=== PATIENT | female | born 1980 | race African-American/Black ===

== ENCOUNTER 2016-12-12 13:47 | Emergency (ER) | payer SELFPAY ==
[~2016-12-12] VITALS: Ht 170.2 cm; Wt 149.7 kg
[~2016-12-12 13:47] MED LIST: NAPR500T PO
[2016-12-12 15:15] LABS: BILIRUBIN,URINE NEGATIVE (NEG); GLUCOSE,URINE NEGATIVE (NEG); NITRITE,URINE NEGATIVE (NEG); PROTEIN,URINE NEGATIVE (NEG-TRACE); UROBILINOGEN,URINE 0.2 mg/dL (0.2 mg/dL)
[2016-12-12 15:18] LABS: BASO % 1 % (0-3); EOS % 1 % (0-3); HEMATOCRIT 35.4 % (36.0-47.0); LYMPH # 1.5 x10^3/uL (1.0-4.8); LYMPH % 23 % (24-48); MEAN CORPUSCULAR HEMOGLOBIN 28 pg (25-35); MEAN CORPUSCULAR HGB CONC 31 g/dL (31-37); MEAN CORPUSCULAR VOLUME 90 fL (79-100); MONO % 6 % (0-9); NEUT % 70 % (31-73); PLATELET COUNT 157 x10^3/uL (140-400); RED BLOOD COUNT 3.96 x10^6/uL (3.50-5.40); RED CELL DISTRIBUTION WIDTH 16.4 % (11.5-14.5); WHITE BLOOD COUNT 6.4 x10^3/uL (4.0-11.0)
--- NOTE | 2016-12-12 15:19 | PHYS DOC ---
Past Medical History Past Medical History: No Pertinent History Past Surgical History: Tubal ligation Additional Past Surgical Histo: ear surgery Alcohol Use: None Drug Use: None Adult General Chief Complaint Chief Complaint: ABDOMINAL PAIN HPI HPI 36-year-old female presenting to the emergency department today with epigastric abdominal pain this started 3-4 hours ago. Her pain is a cramping sensation in the epigastrium that radiates around to the back. The pain is moderate, intermittent, and without alleviating factors. She reports taking aspirin earlier today for headache. No exacerbating factors present. Review of systems is negative for nausea vomiting diaphoresis. She has had intermittent chest pain in addition to the epigastric abdominal pain. Negative for shortness of breath. She denies unilateral leg swelling hemoptysis. All other review of systems is negative unless otherwise noted in history of present illness. Review of Systems Review of Systems SEE ABOVE. Current Medications Current Medications Current Medications Medications (Trade) Dose Ordered Sig/Yudy Start Time Stop Time Status Last Admin Dose Admin Famotidine (Pepcid) 20 mg 1X ONCE 12/12/16 15:30 12/12/16 15:31 DC 12/12/16 15:19 20 MG Allergies Allergies Allergies Coded Allergies Type Severity Reaction Last Updated Verified No Known Drug Allergies 01/05/14 No Physical Exam Physical Exam Constitutional: Well developed, well nourished, no acute distress, non-toxic appearance. HENT: Normocephalic, atraumatic, bilateral external ears normal, oropharynx moist, no oral exudates, nose normal. [] Eyes: PERRLA, EOMI, conjunctiva normal, no discharge. [] Neck: Normal range of motion, no tenderness, supple, no stridor. Cardiovascular:Heart rate regular rhythm, no murmur [] Lungs & Thorax: Bilateral breath sounds clear to auscultation Abdomen: Soft nontender abdomen without rebound tenderness or guarding present. Negative McBurneys point. Negative Justin sign. No ecchymosis present. Skin: Warm, dry, no erythema, no rash. [] Back: No tenderness, no CVA tenderness. Extremities: No tenderness, no cyanosis, no clubbing, ROM intact, no edema. Neurologic: Alert and oriented X 3, normal motor function, normal sensory function, no focal deficits noted. [] Psychologic: Affect normal, judgement normal, mood normal. [] Current Patient Data Vital Signs Vital Signs Date Time Temp Pulse Resp B/P Pulse Ox O2 Delivery O2 Flow Rate FiO2 12/12/16 17:00 62 108/57 95 Room Air 12/12/16 14:10 99.0 16 99.0 Lab Values Laboratory Tests Test 12/12/16 14:30 12/12/16 14:35 12/12/16 17:15 Urine Collection Type Unknown Urine Color Yellow Urine Clarity Clear Urine pH 6.0 Urine Specific [place] 1.025 Urine Protein Negativemg/dL (NEG-TRACE) Urine Glucose (UA) Negativemg/dL (NEG) Urine Ketones (Stick) Negativemg/dL (NEG) Urine Blood Negative (NEG) Urine Nitrite Negative (NEG) Urine Bilirubin Negative (NEG) Urine Urobilinogen Dipstick 0.2mg/dL (0.2 mg/dL) Urine Leukocyte Esterase Small (NEG) Urine RBC 1-2/HPF (0-2) Urine WBC 1-4/HPF (0-4) Urine Squamous Epithelial Cells Mod/LPF Urine Bacteria Few/HPF (0-FEW) Urine Mucus Mod/LPF White Blood Count 6.4x10^3/uL (4.0-11.0) Red Blood Count 3.96x10^6/uL (3.50-5.40) Hemoglobin 11.0g/dL (12.0-15.5) L Hematocrit 35.4% (36.0-47.0) L Mean Corpuscular Volume 90fL (79-100) Mean Corpuscular Hemoglobin 28pg (25-35) Mean Corpuscular Hemoglobin Concent 31g/dL (31-37) Red Cell Distribution Width 16.4% (11.5-14.5) H Platelet Count 157x10^3/uL (140-400) Neutrophils (%) (Auto) 70% (31-73) Lymphocytes (%) (Auto) 23% (24-48) L Monocytes (%) (Auto) 6% (0-9) Eosinophils (%) (Auto) 1% (0-3) Basophils (%) (Auto) 1% (0-3) Neutrophils # (Auto) 4.4x10^3uL (1.8-7.7) Lymphocytes # (Auto) 1.5x10^3/uL (1.0-4.8) Monocytes # (Auto) 0.4x10^3/uL (0.0-1.1) Eosinophils # (Auto) 0.1x10^3/uL (0.0-0.7) Basophils # (Auto) 0.0x10^3/uL (0.0-0.2) Sodium Level 141mmol/L (136-145) Potassium Level 3.5mmol/L (3.5-5.1) Chloride Level 105mmol/L (98-107) Carbon Dioxide Level 26mmol/L (21-32) Anion Gap 10 (6-14) Blood Urea Nitrogen 9mg/dL (7-20) Creatinine 1.0mg/dL (0.6-1.0) Estimated GFR (Cockcroft-Gault) 76.8 BUN/Creatinine Ratio 9 (6-20) Glucose Level 94mg/dL (70-99) Calcium Level 8.7mg/dL (8.5-10.1) Total Bilirubin 0.5mg/dL (0.2-1.0) Aspartate Amino Transferase (AST) 31U/L (15-37) Alanine Aminotransferase (ALT) 24U/L (14-59) Alkaline Phosphatase 50U/L (46-116) Troponin I Quantitative < 0.017ng/mL (0.000-0.055) < 0.017ng/mL (0.000-0.055) Total Protein 7.5g/dL (6.4-8.2) Albumin 3.2g/dL (3.4-5.0) L Albumin/Globulin Ratio 0.7 (1.0-1.7) L Lipase 87U/L (73-393) Laboratory Tests 12/12/16 14:35 Laboratory Tests 12/12/16 14:35 EKG EKG EKG shows sinus rhythm with a regular rate. [place] is mildly leftward. Intervals normal. ST segments congruent. Not consistent with ACS. [] Radiology/Procedures Radiology/Procedures [] Course & Med Decision Making Course & Med Decision Making Pertinent Labs and Imaging studies reviewed. (See chart for details) [] 36-year-old female presenting to the emergency department 2 chief complaints. Epigastric abdominal pain and chest pain. Vital signs afebrile. Normal heart rate. Unremarkable. Pertinent physical exam shows a nontender abdomen. Nontender gallbladder. Lungs are clear to auscultation bilaterally. Blood work obtained. EKG obtained. Patient given Pepcid for epigastric abdominal pain. Patient received 325 mg of aspirin prior to arrival. Ultrasound of the right upper quadrant ordered and unremarkable. On reexamination the patient was feeling better. Her pain and improved to minimal. Troponin negative 2. EKG unremarkable. The patient was subsequent discharged home to follow up with her primary care physician over the next 2-3 days for continued outpatient evaluation workup and care. Patient demonstrates verbal understanding and face- to-face discharge instructions and return precautions given. Patient comfortable with plan. Dragon Disclaimer Dragon Disclaimer This electronic medical record was generated, in whole or in part, using a voice recognition dictation system. Departure Departure Impression: Primary Impression: Epigastric abdominal pain Additional Impression: Chest pain Disposition: HOME, SELF-CARE Condition: STABLE Referrals: NO PCP (PCP) ANA SPARKS MD Patient Instructions: Abdominal Pain (Nonspecific) Additional Instructions: Thank you for allowing us to participate in your care today. Followup with your primary care physician in 3 days if your symptoms do not improve. If you do not have a primary care provider you can ask for a list of our primary care providers. Return to the emergency department you have any new or concerning findings. This should be evaluated by the primary care physician and any necessary consulting services for continued management within a few days after discharge. Return to emergency room if you have any new or concerning symptoms including but not limited to fever, chills, nausea, vomiting, intractable pain, any new rashes, chest pain, shortness of air, uncontrolled bleeding, difficulty breathing, and/or vision loss. Scripts Famotidine (Pepcid)40 Mg [id number] Mg PO HS #14 TAB Prov:MELA RUBALCAVA MD 12/12/16 Problem Qualifiers Additional Impression: Chest pain Chest pain type: unspecified Qualified Code: R07.9 - Chest pain, unspecified MELA RUBALCAVA MD Dec 12, 2016 15:19
--- NOTE | 2016-12-12 15:28 | EKG ---
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
[2016-12-12] MEDS ORDERED: FAMOTIDINE 20 MG TABLET. PO ONE (15:30)
[2016-12-12 15:45] LABS: CALCIUM 8.7 mg/dL (8.5-10.1); GFR 76.8; POTASSIUM 3.5 mmol/L (3.5-5.1)
--- NOTE | 2016-12-12 15:45 | RAD ---
Right upper quadrant abdominal ultrasound History: Epigastric pain. Comparison: None. Technique: Transabdominal ultrasound images are obtained. Findings: Visualized pancreas is unremarkable. Liver is normal in echogenicity. No focal hepatic masses are identified. Right hepatic lobe is enlarged measuring 19.0 cm in length. Gallbladder has an unremarkable appearance. Common bile duct measures normally at 4 mm in diameter. The right kidney measures 12.3 cm in length and is without evidence of obstruction or stone. Visualized portions of the IVC have normal caliber. Impression: 1. Mild hepatomegaly. 2. Otherwise, unremarkable right upper quadrant ultrasound.
[2016-12-12 15:50] LABS: ALBUMIN 3.2 g/dL (3.4-5.0); ALBUMIN/GLOBULIN RATIO 0.7 (1.0-1.7); TOTAL BILIRUBIN 0.5 mg/dL (0.2-1.0); TOTAL PROTEIN 7.5 g/dL (6.4-8.2)
[2016-12-12 16:05] LABS: BACTERIA,URINE FEW /HPF (0-FEW); SQUAMOUS EPITHELIAL CELL,UR MOD /LPF
[2016-12-12] MEDS ORDERED: FAMO40TA57 PO (18:07)
[2016-12-12 18:14] LABS: NEG OBC UR NEG; POS OBC UR POS
[2016-12-12 18:34] VITALS: BP 134/82
--- NOTE | 2016-12-13 10:39 | RAD ---
Exam: PA and lateral chest radiograph History: Chest pain. Comparison: None. Findings: Cardiomediastinal silhouette is within normal limits for size. Bilateral lung evans are free of focal infiltrate. No pleural effusion is seen. On the frontal view, there appears to be increased lucency of the left apex relative to the contralateral side. Consequently, there might be a small left apical pneumothorax. Impression: Question small left apical pneumothorax. This could be confirmed with frontal chest inspiratory and expiratory radiographs. Results were discussed with emergency department staff on the morning of 12/13/2016.
--- NOTE | 2016-12-14 16:25 | VNOTE ---
CALL BACK NOTE CALL BACK Microbiology 12/12/16 Urine Culture - Final, Complete 12/12/16 Urine Culture Result 1 (OVIDIO) - Final, Complete Attempted to contact this patient in regard to urine culture positive for group B strep the number is not in service. A certified letter will be sent to the patient in regards to culture positive. RAY REAVES APRN Dec 14, 2016 16:24
== END 2016-12-12 18:38 | disposition home or self-care (01) ==
LOC: ER 13:47
DX: R10.13 Epigastric pain (principal); R07.9 Chest pain, unspecified; R51 Headache; Z98.51 Tubal ligation status
CPT/HCPCS: 36415; 71020; 76705; 80053; 81001; 81025; 83690; 84484; 85027; 87086; 93005; 99285-25

== ENCOUNTER 2018-06-04 09:29 | Emergency (ER) | payer OTHER ==
[~2018-06-04] VITALS: Ht 167.6 cm; Wt 145.1 kg
[~2018-06-04 09:29] MED LIST changes: +FAMO40TA57 PO; +NAPR-683 PO; -NAPR500T PO
[2018-06-04 09:40] VITALS: BP 163/81
[2018-06-04] MEDS ORDERED: DIPHTH,PERTUSS(ACELL),TET TOX 0.5 ML DISP.SYRIN. VAX IM ONE (10:30)
[2018-06-04] MEDS ORDERED: LIDOCAINE 1%/EPI 1:100,000 20 ML VIAL. INJ ONE (10:30)
--- NOTE | 2018-06-04 10:51 | RAD ---
History: Lacerations after cleaning above glass from broken window. Comparison: None. Findings: PA, lateral, and oblique views of the right hand. No acute fracture or dislocation is identified. No radiopaque soft tissue foreign body is appreciated. Impression: No acute radiographic abnormality is identified. Electronically signed by: Андрей Zepeda MD (06/04/2018 10:48 AM) [facility]
--- NOTE | 2018-06-04 12:15 | PHYS DOC ---
Past Medical History Past Medical History: No Pertinent History Past Surgical History: Tubal ligation Additional Past Surgical Histo: ear surgery Alcohol Use: None Drug Use: None Adult General Chief Complaint Chief Complaint: LACERATION/AVULSION HPI HPI Patient is a 38 year old female who presents with right hand laceration, patient states she cut herself accidentally picking up broken glasses from a window that broke. Review of Systems Review of Systems Constitutional: Denies fever or chills [] Musculoskeletal: Denies back pain or joint pain [] Integument: Reports right hand laceration Neurologic: Denies headache, focal weakness or sensory changes [] All other systems were reviewed and found to be within normal limits, except as documented in this note. Current Medications Current Medications Current Medications Medications (Trade) Dose Ordered Sig/Yudy Start Time Stop Time Status Last Admin Dose Admin Diphtheria/ Tetanus/Acell Pertussis (Boostrix) 0.5 ml ONCE ONCE 06/04/18 10:30 06/04/18 10:31 DC 06/04/18 10:35 0.5 ML Lidocaine/ Epinephrine (LIDOCAINE 1%-EPI 1:100,000 Multi-Dose) 20 ml 1X ONCE 06/04/18 10:30 06/04/18 10:31 DC 06/04/18 10:34 20 ML Allergies Allergies Allergies Coded Allergies Type Severity Reaction Last Updated Verified No Known Drug Allergies 01/05/14 No Physical Exam Physical Exam Constitutional: Well developed, well nourished, no acute distress, non-toxic appearance. [] Skin: Warm, dry, right index finger with a superficial laceration approximately 1 cm long mid phalanx lateral aspect. Full range of motion to the right index finger. Right ventral ring finger with another laceration approximately 4 cm long in a sharp. Laceration is on the ventral aspect of the finger proximal end. There is no obvious tendon involvement. Patient able to flex and extend the right fingers with no difficulties. +2 right radial pulse. Adequate radial, ulnar, and media sensation to the right hand and fingers. Cap refill less than 2 seconds the right hand. Back: No tenderness, no CVA tenderness. [] Extremities: No tenderness, no cyanosis, no clubbing, ROM intact, no edema. [] Neurologic: Alert and oriented X 3, normal motor function, normal sensory function, no focal deficits noted. [] Psychologic: Affect normal, judgement normal, mood normal. [] Current Patient Data Vital Signs Vital Signs Date Time Temp Pulse Resp B/P (MAP) Pulse Ox O2 Delivery O2 Flow Rate FiO2 06/04/18 09:40 98.5 82 18 163/81 (108) 99 Room Air 98.5 EKG EKG [] Radiology/Procedures Radiology/Procedures Laceration/Wound Repair Wound Location: Right ring finger laceration Wound's Depth, Shape: L Wound Length (cm): Approximately 4 cm Wound Explored: clean Irrigated w/ Saline (ccs): 30 Betadine Prep?: Yes Anesthesia: 1% of lidocaine with epinephrine Volume Anesthetic (ccs): 3 mL Wound Repaired With: Ethilon Suture Size/Type: 5.0/8 interrupted sutures, wound was covered with nonstick dressing []PROCEDURE: HAND RIGHT 3V History: Lacerations after cleaning above glass from broken window. Comparison: None. Findings: PA, lateral, and oblique views of the right hand. No acute fracture or dislocation is identified. No radiopaque soft tissue foreign body is appreciated. Impression: No acute radiographic abnormality is identified. Electronically signed by: Андрей Zepeda MD (06/04/2018 10:48 AM) [facility] DICTATED and SIGNED BY: АНДРЕЙ ZEPEDA MD DATE: 06/04/18 1047 Course & Med Decision Making Course & Med Decision Making Pertinent Labs and Imaging studies reviewed. (See chart for details) This is a 38-year-old female patient presenting to the ED with 2 lacerations one superficial laceration on the right index finger that does not need stitches , another laceration on the right ring finger. The laceration on the right ring finger was closed by me as noted in procedures. Tetanus was updated. Wound care instructions and return precautions provided. Discharged in stable condition. Staff Physician Addendum: I was working in the ER during the course of this patient's visit. I was available for consultation as needed, but I was not directly involved in the care of this patient. Dragon Disclaimer Dragon Disclaimer This electronic medical record was generated, in whole or in part, using a voice recognition dictation system. Departure Departure Impression: Primary Impression: Laceration of finger Disposition: 01 HOME, SELF-CARE Condition: STABLE Referrals: NO PCP (PCP) Follow-up with the emergency room with your own doctor in 7-10 days for suture removal Patient Instructions: Laceration Care, Adult Additional Instructions: You've right finger laceration that was closed with stitches. You can shower. Keep the area clean and dry. Please apply Neosporin to the area twice a day. Monitor it for any signs of infection including but not limited to increased redness, warmth to the area, yellow/odor drainage from the area and return to the ED if they occur. Follow-up with your own doctor or the emergency room in 7 -10 days for suture removal. Problem Qualifiers Primary Impression: Laceration of finger Encounter type: subsequent encounter Finger: ring finger Damage to nail status: without damage Foreign body presence: without foreign body Laterality: right Qualified Codes: S61.214D - Laceration without foreign body of right ring finger without damage to nail, subsequent encounter TAPAN DIETRICH APRN Jun 04, 2018 12:15 CHANI OROZCO MD Jun 04, 2018 17:54
== END 2018-06-04 12:19 | disposition home or self-care (01) ==
LOC: ER 09:29
DX: S61.214A Laceration without foreign body of right ring finger without damage to nail, initial encounter (principal); W25.XXXA Contact with sharp glass, initial encounter; Y93.89 Activity, other specified; Y92.89 Other specified places as the place of occurrence of the external cause; Y99.8 Other external cause status
CPT/HCPCS: 12001; 73130; 90471; 90715; 99284; J3490

== ENCOUNTER 2020-11-01 09:41 | Observation (INO) | payer SELFPAY ==
[~2020-11-01] VITALS: Ht 170.2 cm; Wt 174.2 kg
[2020-11-01 11:25] LABS: BILIRUBIN,URINE SMALL (NEG); CLARITY,URINE CLOUDY; COLOR,URINE AMBER; NITRITE,URINE NEGATIVE (NEG); PH,URINE 5.5 (<5.0-8.0); PROTEIN,URINE 100 mg/dL (NEG-TRACE)
--- NOTE | 2020-11-01 11:31 | RAD ---
INDICATION: Reason: SOB PUI / Spl. Instructions: / History: COMPARISON: December 12, 2016 FINDINGS: Single view of chest obtained. Cardiac mediastinal silhouette is enlarged. Mild patchy opacities bilaterally. No gross osseous destr uctive lesion. IMPRESSION: * There is suspected mild patchy opacities at the bilateral lungs. Causes such as early groundglass infiltrate are within the differential including from viral/atypical etiology. Electronically signed by: Edvin Campuzano MD (11/01/2020 11:28 AM) [id number]
[2020-11-01 11:35] LABS: BASO % 0 % (0-3); EOS % 0 % (0-3); HEMATOCRIT 37.2 % (36.0-47.0); HEMOGLOBIN 11.4 g/dL (12.0-15.5); LYMPH % 29 % (24-48); MEAN CORPUSCULAR HEMOGLOBIN 24 pg (25-35); MEAN CORPUSCULAR HGB CONC 31 g/dL (31-37); MEAN CORPUSCULAR VOLUME 80 fL (79-100); MONO # 0.3 x10^3/uL (0.0-1.1); MONO % 9 % (0-9); NEUT # 2.2 x10^3/uL (1.8-7.7); NEUT % 62 % (31-73); PLATELET COUNT 138 x10^3/uL (140-400); RED BLOOD COUNT 4.68 x10^6/uL (3.50-5.40); RED CELL DISTRIBUTION WIDTH 16.7 % (11.5-14.5); WHITE BLOOD COUNT 3.6 x10^3/uL (4.0-11.0)
--- NOTE | 2020-11-01 11:37 | PHYS DOC ---
Past Medical History Past Medical History: No Pertinent History Past Surgical History: Tubal ligation Additional Past Surgical Histo: ear surgery Smoking Status: Never Smoker Alcohol Use: None Drug Use: None General Adult EDM: Chief Complaint: SHORTNESS OF BREATH HPI: HPI: Patient is a 40 year old female who presents with shortness of air with exertion, headache, fatigue and intermittent fever up to 101 since Monday. 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 She states however she has had her symptoms that started on Monday. She denies any past medical history and states she takes no medications daily. Patient denies nausea, vomiting, abdominal pain, focal weakness, dizziness, numbness or tingling, back pain, urinary symptoms, nasal congestion, cough, chest pain, sore throat. She denies being around anybody else that is sick. Denies any pain at this time. Review of Systems: Review of Systems: Constitutional: + fever or chills. [] Eyes: Denies change in visual acuity. [] HENT: Denies nasal congestion or sore throat. [] Respiratory: Denies cough. + exertion shortness of breath. [] Cardiovascular: Denies chest pain or edema. [] GI: Denies abdominal pain, nausea, vomiting, bloody stools or diarrhea. [] : Denies dysuria. [] Musculoskeletal: Denies back pain or joint pain. + Body aches, + generalized fatigue [] Integument: Denies rash. [] Neurologic: +headache, denies focal weakness or sensory changes. [] Endocrine: Denies polyuria or polydipsia. [] Lymphatic: Denies swollen glands. [] Psychiatric: Denies depression or anxiety. [] Heart Score: Risk Factors: Risk Factors: DM, Current or recent (<one month) smoker, HTN, HLP, family history of CAD, obesity. Risk Scores: Score 0 - 3: 2.5% MACE over next 6 weeks - Discharge Home Score 4 - 6: 20.3% MACE over next 6 weeks - Admit for Clinical Observation Score 7 - 10: 72.7% MACE over next 6 weeks - Early Invasive Strategies Allergies: Allergies: Allergies Coded Allergies Type Severity Reaction Last Updated Verified No Known Drug Allergies 01/05/14 No Physical Exam: PE: Constitutional: Well developed, well nourished, no acute distress, non-toxic appearance. [] HENT: Normocephalic, atraumatic, bilateral external ears normal, oropharynx moist, no oral exudates, nose normal. [] Eyes: PERRLA, EOMI, conjunctiva normal, no discharge. [] Neck: Normal range of motion, no tenderness, supple, no stridor. [] Cardiovascular:Heart rate regular rhythm, no murmur [] Lungs & Thorax: Bilateral upper breath sounds clear and lower diminished to auscultation [] Abdomen: Bowel sounds normal, soft, no tenderness, no masses, no pulsatile masses. [] Skin: Warm, dry, no erythema, no rash. [] Back: No tenderness, no CVA tenderness. [] Extremities: No tenderness, no cyanosis, no clubbing, ROM intact, no edema. [] Neurologic: Alert and oriented X 3, normal motor function, normal sensory function, no focal deficits noted. [] Psychologic: Affect normal, judgement normal, mood normal. [] EKG: EK and read by Dr. Cristina as sinus rhythm and no STEMI Radiology/Procedures: Radiology/Procedures: [] Impression: [facility] [address] [place], [place] [id number] IMAGING REPORT Signed PATIENT: RYANNE ACUÑA ACCOUNT: [id number] : 1980 LOCATION: ER AGE: 40 SEX: F EXAM STATUS: REG ER ORD. PHYSICIAN: MATTY CRISTINA MD REASON: SOB PUI PROCEDURE: CHEST AP ONLY INDICATION: Reason: SOB PUI / Spl. Instructions: / History: COMPARISON: December 12, 2016 FINDINGS: Single view of chest obtained. Cardiac mediastinal silhouette is enlarged. Mild patchy opacities bilaterally. No gross osseous destructive lesion. IMPRESSION: * There is suspected mild patchy opacities at the bilateral lungs. Causes such as early groundglass infiltrate are within the differential including from viral/atypical etiology. Electronically signed by: Terri Raines MD (11/01/2020 11:28 AM) [facility]- [id number] DICTATED and SIGNED BY: TERRI RAINES MD DATE: 11/01/20 [id number] Course & Med Decision Making: Course & Med Decision Making Pertinent Labs and Imaging studies reviewed. (See chart for details) COVID-19 CRITERIA: The patient was evaluated during the global COVID-19 pandemic, and that diagnosis was suspected/considered upon their initial presentation. Their evaluation, treatment and testing was consistent with current guidelines for patients who present with complaints or symptoms that may be related to COVID-19. See HPI. Patient is morbidly obese. Lungs are clear in upper lobes but are diminished in lower lobes. Speaks in full clear sentences. Upon walking back to her ER room from the waiting room she became fatigued and was 90% on room air upon arrival into the room. After the patient has sat for a while she is at 95% on room air. Skin pink warm and dry. Afebrile. She states she has not t aken any Tylenol or ibuprofen since last night. Chest x-ray shows pneumonia. Patient is given Solu-Medrol and azithromycin. U sing shared decision making patient has decided she would like to stay to stay in the hospital. Patient admitted to Dr. Castillo. [] Stephy Disclaimer: Stephy Disclaimer: This electronic medical record was generated, in whole or in part, using a voice recognition dictation system. COVID-19 Patient Risks: Age 65 or older: No Sign of co-morbidity: Yes Exp to person + for COVID: No Exp to PUI: No Travel from affected area: No Lower respiratory symptoms: Yes Fever: Yes Other: Yes (bodyaches) PPE Use: Full PPE with N95 mask or PAPR: Yes Departure Departure Impression: Primary Impression: Person under investigation for COVID-19 Additional Impressions: Pneumonia Qualified Codes: J18.9 - Pneumonia, unspecified organism Hypoxia Disposition: ADMITTED INPT THIS HOSP Admitting Physician: PAULETTE Condition: STABLE Referrals: NO PCP (PCP) RAY BYRNES APRN Nov 01, 2020 11:37
[2020-11-01 11:38] LABS: CALCIUM 8.1 mg/dL (8.5-10.1); CREATININE 1.2 mg/dL (0.6-1.0); GFR 60.8; POTASSIUM 3.5 mmol/L (3.5-5.1)
[2020-11-01 11:40] LABS: HYALINE CASTS, URINE MANY /HPF
[2020-11-01 11:41] LABS: BACTERIA,URINE MODERATE /HPF (0-FEW); RBC,URINE 0 /HPF (0-2)
[2020-11-01 11:42] LABS: ALBUMIN 3.3 g/dL (3.4-5.0); ALBUMIN/GLOBULIN RATIO 0.8 (1.0-1.7); TOTAL BILIRUBIN 0.4 mg/dL (0.2-1.0); TOTAL PROTEIN 7.7 g/dL (6.4-8.2)
[2020-11-01] MEDS ORDERED: methylPREDNISolone SOD SUCC PF 125 MG/2 ML VIAL. IV ONE (12:15)
[2020-11-01] MEDS ORDERED: AZITHRMYCN 500MG IVPB FOR OMNI 250 ML IV ONE (12:15)
[2020-11-01] MEDS ORDERED: IV NORMAL SALINE 1000ML BAG 1,000 ML IV ONE (12:30)
[2020-11-01 12:51] LABS: BASE EXCESS COOX -1 mmol/L (-3-3); HCO3 COOX 22 mmol/L (21-28); METHEMOGLOBIN 0.6 % (0.0-1.9); OXYHEMOGLOBIN 93.3 %; PCO2 COOX 33 mmHg (35-46); PO2 COOX 71 mmHg (85-108); SAT O2 COOX 94 % (92-99)
[2020-11-01 13:47] LABS: INFLUENZA A PATIENT NEGATIVE (NEGATIVE); INFLUENZA B PATIENT NEGATIVE (NEGATIVE)
[2020-11-01] MEDS ORDERED: ONDANSETRON PF 4 MG/2 ML VIAL. IV PRN (15:30)
[2020-11-01] MEDS ORDERED: ACETAMINOPHEN 325 MG TABLET. PO PRN (15:30)
--- NOTE | 2020-11-01 18:33 | NUR ---
Pt arrived on unit at approx 181 by wheelchair via ED staff. Pt ambulated to bed without assistance. Orders/POC reviewed and acknowledged. Tele monitor applied, tele strip interpreted as SR. Pt rating pain at 0/10. Fresh water and box lunch given to pt. 2 bed rails up, non skid socks provided. No concerns noted at this time. Will assume care. Addendum: 11/01/20 at 1846 by MADELAINE RODRIGUEZ RN Pt reports "some" shortness of breath upon admission.
[2020-11-01 19:00] VITALS: BP 122/78
--- NOTE | 2020-11-01 19:40 | EKG ---
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
--- NOTE | 2020-11-01 20:49 | PDOC1 ---
History and Physical Date of Admission Date of Admission DATE: 11/01/20 TIME: 20:44 History of Present Illness History of Present Illness Ms. Ríos, is a 40 year old female admit for worsening shortness of air with exertion, headache, fatigue and feve.. She has had symptoms since monday, tested neg for work then on a rapid test, and called in sick to work 2 days ago for symptoms of fever and weakness and shortness of breath. 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 She denies being around anybody else that is sick. 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, lives with her 2 kids, Past Medical History Cardiovascular: No pertinent hx Pulmonary: No pertinent hx GI: No pertinent hx Heme/Onc: No pertinent hx Para: 2 Past Surgical History Past Surgical History: No pertinent history Family History Family History: No Significant Social History Smoke: No ALCOHOL: none Drugs: None Current Problem List Problem List Problems Medical Problems: (1) Hypoxia Status: Acute (2) Person under investigation for COVID-19 Status: Acute (3) Pneumonia Status: Acute Current Medications Current Medications Current Medications Azithromycin 250 ml @ 250 mls/hr 1X ONCE IV Last administered on 11/01/20at 13:06; Start 11/01/20 at 12:15; Stop 11/01/20 at 13:14; Status DC Methylprednisolone Sodium Succinate (SOLU-Medrol 125MG VIAL) 125 mg 1X ONCE IV Last administered on 11/01/20at 13:05; Start 11/01/20 at 12:15; Stop 11/01/20 at 12:16; Status DC Sodium Chloride 1,000 ml @ 1,000 mls/hr 1X ONCE IV Last administered on 11/01/20at 12:48; Start 11/01/20 at 12:30; Stop 11/01/20 at 13:29; Status DC Ondansetron HCl (Zofran) 4 mg PRN Q8HRS PRN IV NAUSEA/VOMITING; Start 11/01/20 at 15:30; Stop 11/02/20 at 15:29 Acetaminophen (Tylenol) 650 mg PRN Q4HRS PRN PO FEVER > 100.3'F; Start 11/01/20 at 15:30; Stop 11/02/20 at 15:29 Prednisone (Prednisone) 40 mg DAILY PO ; Start 11/02/20 at 09:00 Vitamin B Complex/ Vitamin C (Jessica-Nasir) 1 tab DAILY PO ; Start 11/02/20 at 09:00 Ascorbic Acid (Vitamin C) 500 mg DAILY PO ; Start 11/01/20 at 20:00 Vitamin D (Vitamin D3) 5,000 unit DAILY PO ; Start 11/01/20 at 20:00 Azithromycin (Zithromax) 250 mg DAILY PO ; Start 11/02/20 at 09:00 Enoxaparin Sodium (Lovenox Per Pharmacy Prophylaxis Dosing) 1 each PRN DAILY PRN MC SEE COMMENTS; Start 11/01/20 at 20:00 Zinc Sulfate (Orazinc) 220 mg DAILY PO ; Start 11/01/20 at 20:00 Enoxaparin Sodium (Lovenox 60mg Syringe) 60 mg Q12HR SQ ; Start 11/01/20 at 21: 00 Active Scripts Active Reported No Known Medications Prior To Admisstion (Info) Each 1 Each MC 1X Allergies Allergies: Coded Allergies: No Known Drug Allergies (Unverified , 01/05/14) ROS Review of System . Patient denies nausea, vomiting, abdominal pain, focal weakness, dizziness, numbness or tingling, back pain, General: YES: Chills, Fatigue, Malaise PSYCHOLOGICAL ROS: YES: Sleep disturbances; No: Anxiety, Behavioral Disorder, Concentration difficultie, Decreased libido, Depression, Disorientation, Hallucinations, Hostility, Irritablity, M [place] difficulties, Mood Swings, Obsessive thoughts, Other Eyes: No Blurry vision, No Decreased vision, No Double vision, No Dry eyes, No Excessive tearing, No Eye Pain, No Itchy Eyes, No Loss of vision, No Photophobia, No Scotomata, No Uses contacts, No Uses glasses, No Other HEENT: YES: Heacaches Respiratory: YES: Shortness of breath, SOB with excertion, Tachypnea; No: Cough, Hemoptysis, Orthopnea, Pleuritic Pain, Sputum Changes, Stridor, Wheezing, Other Cardiovascular: No Chest Pain, No Palpitations, No Orthopnea, No Paroxysmal Noc. Dyspnea, No Edema, No Lt Headedness, No Other Gastrointestinal: Yes Nausea; No Vomiting, No Abdominal Pain, No Diarrhea, No Constipation, No Melena, No Hematochezia, No Other Genitourinary: No Dysuria, No Frequency, No Incontinence, No Hematuria, No Retention, No Discharge, No Urgency, No Pain, No Flank Pain, No Other, No , No , No , No , No , No , No Musculoskeletal: No Gait Disturbance, No Joint Pain, No Joint Stiffness, No Joint Swelling, No Muscle Pain, No Muscular Weakness, No Pain In:, No Swelling In:, No Other Neurological: No Behavorial Changes, No Bowel/Bladder ControlChng, No Confusio n, No Dizziness, No Gait Disturbance, No Headaches, No Impaired Coord/balance, No Memory Loss, No Numbness/Tingling, No Seizures, No Speech Problems, No Tremors, No Visual Changes, No Weakness, No Other Skin: Yes Dry Skin; No Eczema, No Hair Changes, No Lumps, No Mole Changes, No Mottling, No Nail Changes, No Pruritus, No Rash, No Skin Lesion Changes, No Other, No Acne Physical Exam General: Alert, Oriented X3, Cooperative, mild distress HEENT: PERRLA, Mucous membr. moist/pink Lungs: Clear to auscultation, Normal air movement Heart: RRR, no murmurs Extremities: No edema, Normal pulses Skin: No significant lesion Neuro: Normal speech, Normal tone, Sensation intact, Cranial nerves 3-12 NL Psych/Mental Status: Mental status NL Vitals Vitals Vital Signs Date Time Temp Pulse Resp B/P (MAP) Pulse Ox O2 Delivery O2 Flow Rate FiO2 11/01/20 17:34 94 114/59 (77) 96 11/01/20 12:35 Room Air 11/01/20 12:31 20 11/01/20 10:10 98.7 98.7 Labs Labs Laboratory Tests Test 11/01/20 10:30 11/01/20 11:00 11/01/20 12:52 11/01/20 12:56 Urine Collection Type Void Urine Color Kiera Urine Clarity Cloudy Urine pH 5.5 (<5.0-8.0) Urine Specific [place] >=1.030 (1.000-1.030) Urine Protein 100 mg/dL (NEG-TRACE) Urine Glucose (UA) Negative mg/dL (NEG) Urine Ketones (Stick) Trace mg/dL (NEG) Urine Blood Negative (NEG) Urine Nitrite Negative (NEG) Urine Bilirubin Small (NEG) Urine Urobilinogen Dipstick 1.0 mg/dL (0.2 mg/dL) Urine Leukocyte Esterase Trace (NEG) Urine RBC 0 /HPF (0-2) Urine WBC 5-10 /HPF (0-4) Urine Squamous Epithelial Cells Many /LPF Urine Bacteria Moderate /HPF (0-FEW) Urine Hyaline Casts Many /HPF Urine Mucus Marked /LPF White Blood Count 3.6 x10^3/uL (4.0-11.0) Red Blood Count 4.68 x10^6/uL (3.50-5.40) Hemoglobin 11.4 g/dL (12.0-15.5) Hematocrit 37.2 % (36.0-47.0) Mean Corpuscular Volume 80 fL (79-100) Mean Corpuscular Hemoglobin 24 pg (25-35) Mean Corpuscular Hemoglobin Concent 31 g/dL (31-37) Red Cell Distribution Width 16.7 % (11.5-14.5) Platelet Count 138 x10^3/uL (140-400) Neutrophils (%) (Auto) 62 % (31-73) Lymphocytes (%) (Auto) 29 % (24-48) Monocytes (%) (Auto) 9 % (0-9) Eosinophils (%) (Auto) 0 % (0-3) Basophils (%) (Auto) 0 % (0-3) Neutrophils # (Auto) 2.2 x10^3/uL (1.8-7.7) Lymphocytes # (Auto) 1.0 x10^3/uL (1.0-4.8) Monocytes # (Auto) 0.3 x10^3/uL (0.0-1.1) Eosinophils # (Auto) 0.0 x10^3/uL (0.0-0.7) Basophils # (Auto) 0.0 x10^3/uL (0.0-0.2) Sodium Level 139 mmol/L (136-145) Potassium Level 3.5 mmol/L (3.5-5.1) Chloride Level 101 mmol/L (98-107) Carbon Dioxide Level 27 mmol/L (21-32) Anion Gap 11 (6-14) Blood Urea Nitrogen 11 mg/dL (7-20) Creatinine 1.2 mg/dL (0.6-1.0) Estimated GFR (Cockcroft-Gault) 60.8 BUN/Creatinine Ratio 9 (6-20) Glucose Level 96 mg/dL (70-99) Lactic Acid Level 0.9 mmol/L (0.4-2.0) Calcium Level 8.1 mg/dL (8.5-10.1) Total Bilirubin 0.4 mg/dL (0.2-1.0) Aspartate Amino Transf (AST/SGOT) 51 U/L (15-37) Alanine Aminotransferase (ALT/SGPT) 29 U/L (14-59) Alkaline Phosphatase 49 U/L (46-116) Troponin I Quantitative < 0.017 ng/mL (0.000-0.055) Total Protein 7.7 g/dL (6.4-8.2) Albumin 3.3 g/dL (3.4-5.0) Albumin/Globulin Ratio 0.8 (1.0-1.7) Lipase 167 U/L (73-393) O2 Saturation 94 % (92-99) Arterial Blood pH 7.44 (7.35-7.45) Arterial Blood pCO2 at Patient Temp 33 mmHg (35-46) Arterial Blood pO2 at Patient Temp 71 mmHg (85-108) Arterial Blood HCO3 22 mmol/L (21-28) Arterial Blood Base Excess -1 mmol/L (-3-3) Oxyhemoglobin 93.3 % Methemoglobin 0.6 % (0.0-1.9) Carbon Monoxide, Quantitative 0.1 % (0.0-1.9) FiO2 21/ room air Influenza Type A Antigen Negative (NEGATIVE) Influenza Type B Antigen Negative (NEGATIVE) Laboratory Tests Test 11/01/20 10:30 11/01/20 11:00 11/01/20 12:52 11/01/20 12:56 Urine Collection Type Void Urine Color Kiera Urine Clarity Cloudy Urine pH 5.5 (<5.0-8.0) Urine Specific [place] >=1.030 (1.000-1.030) Urine Protein 100 mg/dL (NEG-TRACE) Urine Glucose (UA) Negative mg/dL (NEG) Urine Ketones (Stick) Trace mg/dL (NEG) Urine Blood Negative (NEG) Urine Nitrite Negative (NEG) Urine Bilirubin Small (NEG) Urine Urobilinogen Dipstick 1.0 mg/dL (0.2 mg/dL) Urine Leukocyte Esterase Trace (NEG) Urine RBC 0 /HPF (0-2) Urine WBC 5-10 /HPF (0-4) Urine Squamous Epithelial Cells Many /LPF Urine Bacteria Moderate /HPF (0-FEW) Urine Hyaline Casts Many /HPF Urine Mucus Marked /LPF White Blood Count 3.6 x10^3/uL (4.0-11.0) Red Blood Count 4.68 x10^6/uL (3.50-5.40) Hemoglobin 11.4 g/dL (12.0-15.5) Hematocrit 37.2 % (36.0-47.0) Mean Corpuscular Volume 80 fL (79-100) Mean Corpuscular Hemoglobin 24 pg (25-35) Mean Corpuscular Hemoglobin Concent 31 g/dL (31-37) Red Cell Distribution Width 16.7 % (11.5-14.5) Platelet Count 138 x10^3/uL (140-400) Neutrophils (%) (Auto) 62 % (31-73) Lymphocytes (%) (Auto) 29 % (24-48) Monocytes (%) (Auto) 9 % (0-9) Eosinophils (%) (Auto) 0 % (0-3) Basophils (%) (Auto) 0 % (0-3) Neutrophils # (Auto) 2.2 x10^3/uL (1.8-7.7) Lymphocytes # (Auto) 1.0 x10^3/uL (1.0-4.8) Monocytes # (Auto) 0.3 x10^3/uL (0.0-1.1) Eosinophils # (Auto) 0.0 x10^3/uL (0.0-0.7) Basophils # (Auto) 0.0 x10^3/uL (0.0-0.2) Sodium Level 139 mmol/L (136-145) Potassium Level 3.5 mmol/L (3.5-5.1) Chloride Level 101 mmol/L (98-107) Carbon Dioxide Level 27 mmol/L (21-32) Anion Gap 11 (6-14) Blood Urea Nitrogen 11 mg/dL (7-20) Creatinine 1.2 mg/dL (0.6-1.0) Estimated GFR (Cockcroft-Gault) 60.8 BUN/Creatinine Ratio 9 (6-20) Glucose Level 96 mg/dL (70-99) Lactic Acid Level 0.9 mmol/L (0.4-2.0) Calcium Level 8.1 mg/dL (8.5-10.1) Total Bilirubin 0.4 mg/dL (0.2-1.0) Aspartate Amino Transf (AST/SGOT) 51 U/L (15-37) Alanine Aminotransferase (ALT/SGPT) 29 U/L (14-59) Alkaline Phosphatase 49 U/L (46-116) Troponin I Quantitative < 0.017 ng/mL (0.000-0.055) Total Protein 7.7 g/dL (6.4-8.2) Albumin 3.3 g/dL (3.4-5.0) Albumin/Globulin Ratio 0.8 (1.0-1.7) Lipase 167 U/L (73-393) O2 Saturation 94 % (92-99) Arterial Blood pH 7.44 (7.35-7.45) Arterial Blood pCO2 at Patient Temp 33 mmHg (35-46) Arterial Blood pO2 at Patient Temp 71 mmHg (85-108) Arterial Blood HCO3 22 mmol/L (21-28) Arterial Blood Base Excess -1 mmol/L (-3-3) Oxyhemoglobin 93.3 % Methemoglobin 0.6 % (0.0-1.9) Carbon Monoxide, Quantitative 0.1 % (0.0-1.9) FiO2 21/ room air Influenza Type A Antigen Negative (NEGATIVE) Influenza Type B Antigen Negative (NEGATIVE) VTE Prophylaxis Ordered VTE Prophylaxis Devices: No VTE Pharmacological Prophylaxi: Yes Assessment/Plan Assessment/Plan SIRS without organ dysfunction PUI, probably covid, start protocol short of remdesevir weakness, debility morbid obesity, BMI 53.5 admit obs, Justifications for Admission Other Justification ASHWIN HOSKINS MD Nov 01, 2020 20:49
[2020-11-01] MEDS: CHOLECALCIFEROL (VITAMIN D3) 5,000 UNIT CAPSULE PO SCH (22:13)
[2020-11-01] MEDS: ASCORBIC ACID 500 MG TABLET PO SCH (22:13)
[2020-11-01] MEDS: ZINC SULFATE 220 MG CAPSULE. PO SCH (22:13)
[2020-11-01 23:00] VITALS: BP 131/86
[2020-11-02 03:00] VITALS: BP 130/83
[2020-11-02 07:42] VITALS: BP 115/76
[2020-11-02] MEDS: CHOLECALCIFEROL (VITAMIN D3) 5,000 UNIT CAPSULE PO SCH (08:47)
[2020-11-02] MEDS: ASCORBIC ACID 500 MG TABLET PO SCH (08:47)
[2020-11-02] MEDS: ZINC SULFATE 220 MG CAPSULE. PO SCH (08:47)
[2020-11-02] MEDS ORDERED: predniSONE 20 MG TABLET PO SCH (09:00)
[2020-11-02] MEDS ORDERED: FOLIC/VIT B COMP W-C (RENAL) TABLET. PO SCH (09:00)
[2020-11-02] MEDS ORDERED: AZITHROMYCIN 250 MG TABLET. PO SCH (09:00)
[2020-11-02 11:03] VITALS: BP 117/71
--- NOTE | 2020-11-02 12:06 | DS ---
DATE OF DISCHARGE: 11/02/2020 ADMISSION DIAGNOSES: Possible COVID-19 with systemic inflammatory response, weakness, debility, overweight, and respiratory failure. DISCHARGE DIAGNOSIS: Resolving respiratory failure. HOSPITAL COURSE: The patient is a pleasant middle-aged female who presented to the ER yesterday with some weakness. She was little short of breath. She had a fever and headache. She tested negative just recently for COVID-19, but we were concerned she could still have it. She was admitted overnight for observation. This morning, she is doing better. I saw and examined her, she is up walking, wanting to go home. Her COVID test that we repeated yesterday is still pending, but clinically she looks great. I did leave her a prescription for Medrol Dosepak and Z-ANGELITA. We plan to discharge and have her follow up with her primary care doctor. DISPOSITION: Home. ACTIVITY: As tolerated. DIET: Low sodium. MEDICATIONS: Please see the MRAD. TOTAL TIME: 34 minutes. SAAD HORN DO DR: PATRICE/stacey JOB#: [id number] / [id number]
--- NOTE | 2020-11-02 12:06 | PDOC ---
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 with [employer] windows engineer Vitals/I&O Vitals/I&O: Vital Signs Date Time Temp Pulse Resp B/P (MAP) Pulse Ox O2 Delivery O2 Flow Rate FiO2 11/02/20 11:03 97.7 81 20 117/71 (86) 94 Room Air 97.7 I & O 11/01/20 11/01/20 11/02/20 15:00 23:00 07:00 Intake Total 400 ml 200 ml Balance 400 ml 200 ml Physical Exam General: Alert, Oriented X3, Cooperative, mild distress Heart: Regular rate, Normal S1, Normal S2 Lungs: Clear Abdomen: Normal bowel sounds, No tenderness Extremities: No edema, Normal pulses Skin: No rashes, No significant lesion Labs Labs: Laboratory Tests Test 11/01/20 12:52 11/01/20 12:56 O2 Saturation 94 % (92-99) Arterial Blood pH 7.44 (7.35-7.45) Arterial Blood pCO2 at Patient Temp 33 mmHg (35-46) Arterial Blood pO2 at Patient Temp 71 mmHg (85-108) Arterial Blood HCO3 22 mmol/L (21-28) Arterial Blood Base Excess -1 mmol/L (-3-3) Oxyhemoglobin 93.3 % Methemoglobin 0.6 % (0.0-1.9) Carbon Monoxide, Quantitative 0.1 % (0.0-1.9) FiO2 21/ room air Influenza Type A Antigen Negative (NEGATIVE) Influenza Type B Antigen Negative (NEGATIVE) Review of Systems Review of Systems: Patient acknowledges fever, chills, malaise Patient acknowledges shortness of breath Patient denies vomiting, abdominal pain Patient denies dysuria Patient denies chest pain Assessment and Plan Assessmemt and Plan Problems Medical Problems: (1) Hypoxia Status: Acute (2) Person under investigation for COVID-19 Status: Acute (3) Pneumonia Status: Acute Shortness of breath with exertion Plan Probable discharge per negative COVID test Left prescriptions for ZPack and Medrol dose pack Monitor O2 DVT prophylaxis Full code Comment Review of Relevant I have reviewed the following items janny (where applicable) has been applied. Medications: Current Medications Medications (Trade) Dose Ordered Sig/Yudy Route PRN Reason Start Time Stop Time Status Last Admin Dose Admin Azithromycin 250 ml @ 250 mls/hr 1X ONCE IV 11/01/20 12:15 11/01/20 13:14 DC 11/01/20 13:06 Methylprednisolone Sodium Succinate (SOLU-Medrol 125MG VIAL) 125 mg 1X ONCE IV 11/01/20 12:15 11/01/20 12:16 DC 11/01/20 13:05 Sodium Chloride 1,000 ml @ 1,000 mls/hr 1X ONCE IV 11/01/20 12:30 11/01/20 13:29 DC 11/01/20 12:48 Acetaminophen (Tylenol) 650 mg PRN Q4HRS PRN PO FEVER > 100.3'F 11/01/20 15:30 11/02/20 15:29 11/01/20 22:13 Prednisone (Prednisone) 40 mg DAILY PO 11/02/20 09:00 11/02/20 08:48 Vitamin B Complex/ Vitamin C (Jessica-Nsair) 1 tab DAILY PO 11/02/20 09:00 11/02/20 08:48 Ascorbic Acid (Vitamin C) 500 mg DAILY PO 11/01/20 20:00 11/02/20 08:47 Vitamin D (Vitamin D3) 5,000 unit DAILY PO 11/01/20 20:00 11/02/20 08:47 Azithromycin (Zithromax) 250 mg DAILY PO 11/02/20 09:00 11/02/20 08:48 Zinc Sulfate (Orazinc) 220 mg DAILY PO 11/01/20 20:00 11/02/20 08:47 Enoxaparin Sodium (Lovenox 60mg Syringe) 60 mg Q12HR SQ 11/01/20 21:00 11/02/20 08:48 Justifications for Admission Other Justification SAAD HORN III DO Nov 02, 2020 12:06
--- NOTE | 2020-11-02 13:22 | NUR ---
SW following for discharge planning. Spoke with RN and reviewed chart. Pt self-pay and [facility] is following. Pt to discharge home today, self-care on oral abx and room air. No further SW needs at this time.
--- NOTE | 2020-11-02 14:02 | NUR ---
Pt discharged to home with mother. Discharge teaching reviewed with pt. Verbalized understanding.
--- NOTE | 2020-11-02 16:51 | NUR ---
IP: Pt discharged prior to COVID results. Attempted to contact pt at [phone]. No answer. Left a voicemail to return the call.
--- NOTE | 2020-11-02 17:31 | NUR ---
IP: Pt returned my call and informed her of the positive COVID results and the need to quarantine for 10 days. Pt verbalized understanding.
== END 2020-11-02 14:04 | disposition home or self-care (01) ==
LOC: ER 09:41 → 6 SOUTH 15:27
PROVIDERS: ADMIT Internal Medicine; ATTEND Internal Medicine
DX: U07.1 COVID-19 (principal); J96.91 Respiratory failure, unspecified with hypoxia; J18.9 Pneumonia, unspecified organism; E66.01 Morbid (severe) obesity due to excess calories; Z98.51 Tubal ligation status; Z68.43 Body mass index [BMI] 50.0-59.9, adult; Z79.899 Other long term (current) drug therapy
CPT/HCPCS: 36415; 36600; 71045; 80053; 81001; 82805; 83605; 83690; 84484; 85025; 87040; 87086; 87804; 93005; 96365; 96372; 96375; 99285; G0378; J0456; J1650; J2930; J7030; J7512; U0003; G0379